=== PATIENT | female | born 1935 | race Caucasian/White ===

== ENCOUNTER 2021-09-29 20:23 | Emergency (ER) | payer MEDICARE, OTHER ==
[~2021-09-29] VITALS: Ht 162.6 cm; Wt 74.8 kg
--- NOTE | 2021-09-29 20:56 | NUR ---
BIBDAUGHTER C/O HEARING LOSS IN BOTH EARS SINCE THIS MORNING. DENIES ANY PAIN, NAUSEA OR DIZZINESS. PT A/OX4. TOLERATING R/A WELL WITH NO SOB. PT AMBULATORY WITH STEADY GAIT
--- NOTE | 2021-09-29 21:57 | NUR ---
DR. WILLOUGHBY AT PT'S BEDSIDE
--- NOTE | 2021-09-29 22:48 | NUR ---
patient going to ct.
--- NOTE | 2021-09-29 23:49 | NUR ---
Patient does not wish to proceed with medical care recommended by Dr. hull. Patient given information related to possible complications, up to and including , which could occur as a result of leaving the hospital at this time. Patient verbalizes understanding of risks involved due to leaving against medical advice. Patient has signed AMA form.
[2021-09-29 23:50] VITALS: BP 170/88
== END 2021-09-29 23:51 | disposition left against medical advice (07) ==
LOC: ER 20:29
DX: H61.23 Impacted cerumen, bilateral (principal); I10 Essential (primary) hypertension
CPT/HCPCS: 70450-TC